=== PATIENT | male | born 1940 | race African-American/Black ===

== ENCOUNTER → 2016-10-12 | Outpatient (CLI) | payer OTHER ==
[~2016-10-12] MED LIST: ASPIRIN EC81 M1 PO; CELEXA10 MG PO; LUNESTA3 MG PO; MOBIC7.5 MG PO; NEURONTIN 300300 M1 PO; NITROGLYCERIN0.4 MG SUBLING; PEPCID20 MG PO; PRAVACHOL40 MG PO; PRINIVIL20 MG PO; SENOKOT8.6 MG PO; UROXATRAL PO
== END ==
LOC: ULTRA 11:52
DX: I73.89 Other specified peripheral vascular diseases (principal); I74.3 Embolism and thrombosis of arteries of the lower extremities

== ENCOUNTER 2019-03-16 16:07 | Inpatient (IN) | payer OTHER ==
[~2019-03-16] VITALS: Ht 180.3 cm; Wt 72.4 kg
[2019-03-16 16:07] VITALS: BP 134/74
[2019-03-16] MEDS ORDERED: LIPITOR40 MG PO (16:32)
[2019-03-16] MEDS ORDERED: COLACE 100 MG100 MG PO (16:33)
[2019-03-16] MEDS ORDERED: FLONASE 0.05%50 MCG NARES (16:33)
[2019-03-16] MEDS ORDERED: MELATIN3 MG PO (16:34)
[2019-03-16] MEDS ORDERED: FUROSEMIDE 40 M40 M1 PO (16:34)
[2019-03-16] MEDS ORDERED: IMDUR 30 MG TAB30 M1 PO (16:34)
[2019-03-16] MEDS ORDERED: ICAPS MV TABLE1 EAC1 PO (16:34)
[2019-03-16] MEDS ORDERED: PLAVIX 75 MG TA75 MG PO (16:35)
[2019-03-16] MEDS ORDERED: CENTRUM MEN'S1 EACH PO (16:35)
[2019-03-16] MEDS ORDERED: TOPROL XL25 MG PO (16:35)
[2019-03-16] MEDS ORDERED: PROTONIX40 M2 PO (16:36)
[2019-03-16] MEDS ORDERED: CALCIUM CA1250 MG/5 PO (16:36)
[2019-03-16] MEDS ORDERED: PREDNISONE 20 M20 MG PO (16:37)
[2019-03-16] MEDS ORDERED: RENAL-VITE TAB0.8 MG PO (16:38)
[2019-03-16] MEDS ORDERED: ZOLOFT25 MG PO (16:38)
[2019-03-16] MEDS ORDERED: CARAFATE 1 GM TA1 GM PO (16:38)
[2019-03-16 16:55] LABS: ABSOLUTE NEUTROPHILS 9.4 thou/uL (1.4-8.2); BASOPHILS 0.4 % (0.0-2.0); HEMATOCRIT 44.6 % (42.0-52.0); LYMPHOCYTES 4.9 % (24.0-44.0); MCH 27.6 pg (26.0-34.0); MCHC 31.4 g/dL (28.0-37.0); MONOCYTES 3.3 % (1.0-8.0); PLATELET COUNT 213 thou/uL (150-400); POLYS 91.4 % (36.0-66.0); RBC 5.07 mil/uL (4.50-6.00); WBC 10.3 thou/uL (4.0-11.0)
[2019-03-16 16:57] LABS: ANION GAP 15 mmol/L (7-16); BUN 24 mg/dL (7-18); CALCIUM 9.8 mg/dL (8.5-10.1); CHLORIDE 102 mmol/L (98-107); CO2 20 mmol/L (21-32); CREATININE 1.1 mg/dL (0.7-1.3); GLUCOSE 164 mg/dL (74-106); POTASSIUM 4.4 mmol/L (3.5-5.1); SODIUM 137 mmol/L (136-145)
[2019-03-16 17:07] LABS: ALBUMIN 3.5 g/dL (3.4-5.0); DIRECT BILIRUBIN < 0.1 mg/dL (<0.1-0.3); SGOT < 5 U/L (15-37); SGPT 47 U/L (30-65); TOTAL BILIRUBIN 0.7 mg/dL (<0.1-1.0); TOTAL PROTEIN 7.1 g/dL (6.4-8.2); TROPONIN-I 0.21 ng/mL (<0.06)
[2019-03-16 18:04] LABS: URINE BILIRUBIN NEGATIVE (Negative); URINE BLOOD 3+ (Negative); URINE CLARITY CLEAR; URINE COLOR YELLOW; URINE GLUCOSE-RANDOM* NEGATIVE (Negative); URINE KETONES NEGATIVE (Negative); URINE LEUKOCYTES-REFLEX NEGATIVE (Negative); URINE NITRITE-REFLEX NEGATIVE (Negative); URINE PROTEIN (DIPSTICK) 1+ (Negative); URINE SPECIFIC GRAVITY >= 1.030 (1.005-1.035); URINE UROBILINOGEN 0.2 E.U./dl (0.2-1.0)
[2019-03-16 18:15] LABS: SQUAMOUS 0-3 Few /LPF (0-3); URINE RBC >20 Many /HPF (0-2)
[2019-03-16 18:16] LABS: CASTS None Seen /LPF (None Seen); CRYSTALS None Seen /LPF (None Seen)
[2019-03-16 18:17] LABS: BACTERIA-REFLEX 1-9 Few /HPF (None Seen); URINE WBC-REFLEX None Seen /HPF (0-5)
--- NOTE | 2019-03-16 18:32 | NUR ---
PT'S DAUGHTER MISA CALLED TO UPDATE HER ON THE PT. MISA REQUESTED A CALL BACK FROM THE NIGHT NURSE ONCE A BED IS ASSIGNED. MISA'S PHONE NUMBER IS [phone]
[2019-03-16 19:42] VITALS: BP 117/73
[2019-03-16 20:30] VITALS: BP 114/76
[2019-03-16 23:23] VITALS: BP 101/68
[2019-03-17 01:26] LABS: HEMATOCRIT 40.9 % (42.0-52.0); HEMOGLOBIN 12.8 gm/dL (14.0-18.0); MCH 27.4 pg (26.0-34.0); MCHC 31.3 g/dL (28.0-37.0); MCV 87.5 fL (80.0-100.0); RBC 4.67 mil/uL (4.50-6.00); RDW 16.7 % (10.5-14.5)
[2019-03-17 01:36] LABS: CALCIUM 9.2 mg/dL (8.5-10.1); CREATININE 0.9 mg/dL (0.7-1.3); POTASSIUM 4.2 mmol/L (3.5-5.1)
[2019-03-17 04:47] VITALS: BP 117/83
--- NOTE | 2019-03-17 05:35 | NUR ---
ASSUMED PT CARE AT 2009. VSS, PT A&0X4. PY IS VERY UNSTEAD ON HIS FEET, HENCE BEDPAIN REQUIRED FOR ELIMINATION THIS SHIFT. OTHERWISE, PT IS STABLE, SR ON THE MONITOR. SLEPT THROUGH THE NIGHT, FLUIDS STARTED. WILL CONTINUE TO MONITOR PER POC.
[2019-03-17 08:05] VITALS: BP 124/87
--- NOTE | 2019-03-17 09:33 | 2DMMODE ---
[facility] [address] [email or web address] [address] 2 D/M-MODE ECHOCARDIOGRAM Name: VELABRANDON Room #: 219-P ADM IN M.R.#: [id number] Admission: 03/16/19 Attend Phys: Waldo Byers MD Discharge: Date of : 36 Report #: [id number] THIS REPORT FOR: //name// APPROVED REPORT Study performed: 03/17/2019 08:22:58 EXAM: Comprehensive 2D, Doppler, and color-flow Echocardiogram Patient Location: Echo lab Room #: 219 Status: routine BSA: 1.90 HR: 74 bpm BP: 124/87 mmHg Rhythm: NSR Other Information Study Quality: Good Indications Congestive Heart Failure Diabetes CAD Hypertension/HDD 2D Dimensions RVDd: 41.14 mm IVSd: 12.87 (7-11mm) LVOT Diam: 17.78 (18-24mm) LVDd: 37.31 mm PWd: 13.58 (7-11mm) Ascending Ao: 34.42 (22-36mm) LVDs: 30.19 (25-40mm) Aortic Root: 31.66 mm IVC: 21.00 mm Volumes Left Atrial Volume (Systole) Single Plane 4CH: 73.00 mL Single Plane 2CH: 66.55 mL LA ESV Index: 41.00 mL/m2 Aortic Valve AoV Peak Frederick.: 1.88 m/s AO Peak Gr.: 14.20 mmHg LVOT Max P.14 mmHg AO Mean Gr.: 7.57 mmHg LVOT Mean P.08 mmHg AO V2 Mean: 1.27 m/s LVOT Max V: 0.73 m/s AO V2 VTI: 32.86 cm LVOT Mean V: 0.45 m/s LEEANN (VTI): 0.98 cm2 LVOT V1 VTI: 12.99 cm [facility] [place] [place] [address] 2 D/M-MODE ECHOCARDIOGRAM Name: BRANDON VELA Room #: 219-P [facility] [place] .R.#: [id number] Admission: 03/16/19 Attend Phys: Waldo Byers MD Discharge: Date of : 36 Report #: [id number] LEEANN Vmax: 0.96 cm2 SV (LVOT): 32.23 mL Mitral Valve E/A Ratio: 3.5 MV Decel. Time: 166.20 ms MV E Max Frederick.: 1.36 m/s MV A Frederick.: 0.39 m/s MV PHT: 48.20 ms IVRT: 69.20 ms Pulmonary Valve PV Peak Frederick.: 1.07 m/s PV Peak Gr.: 4.68 mmHg Pulmonary Vein P Vein S: 0.34 m/s P Vein A: 0.16 m/s P Vein D: 0.47 m/s P Vein A Dur.: 92.3 msec P Vein S/D Ratio: 0.72 Tricuspid Valve TR Peak Frederick.: 3.62 m/s TR Peak Gr.: 52.34 mmHg PA Pressure: 62.00 mmHg Left Ventricle The left ventricle is normal size. Mild to moderate concentric left ventricular hypertrophy. Left ventricular systolic function is mildly decreased. LVEF is 40-45%. Grade IV - fixed restrictive diastolic dysfunction. Right Ventricle Right ventricle is at the upper limits of normal. Right ventricle is mildly hypokinetic. Atria Left atrium is dilated. Right atrium is dilated. Aortic Valve The aortic valve is normal in structure. Aortic valve is calcified. Mild aortic regurgitation. Moderate aortic stenosis. Mitral Valve The mitral valve is normal in structure. There is mitral annular calcification. Moderate mitral regurgitation. No evidence of mitral valve stenosis. [facility] [address] [place] [address] 2 D/M-MODE ECHOCARDIOGRAM Name: BRANDON VELA Room #: 219-P [facility] [place] .R.#: [id number] Admission: 03/16/19 Attend Phys: Waldo Byers MD Discharge: Date of : 36 Report #: [id number] Tricuspid Valve The tricuspid valve is normal in structure. There is mild tricuspid regurgitation. Estimated PAP 62 mmHg. There is moderate pulmonary hypertension. Pulmonic Valve The pulmonary valve is normal in structure. Trace pulmonic regurgitation. Great Vessels The aortic root is normal in size. IVC is dilated. Pericardium There is no pericardial effusion. <Conclusion> The left ventricle is normal size. Left ventricular systolic function is mildly decreased. LVEF is - 45%. Right ventricle is at the upper limits of normal. Right ventricle is mildly hypokinetic. Left atrium is dilated. Right atrium is dilated. The aortic valve is normal in structure. Aortic valve is calcified. Mild aortic regurgitation. Moderate aortic stenosis. The mitral valve is normal in structure. There is mitral annular calcification. Moderate mitral regurgitation. The tricuspid valve is normal in structure. There is mild tricuspid regurgitation. Estimated PAP 62 mmHg. There is moderate pulmonary hypertension. There is no pericardial effusion. <ELECTRONICALLY SIGNED> By: Isma Vidal MD 03/17/1935 2 2 Isma Vidal MD /INF
[2019-03-17 11:39] VITALS: BP 105/70
--- NOTE | 2019-03-17 16:43 | NUR ---
met with patient and sp with dtr. patient admits with weakness. patient resides at home with dtr. he reports all needs on one level. He has a walker but does not use. He reports hx of HH in past but cannot recall agency. Discussed therapy recommendations of post acute care. patient with [facility] list to review. Referral to [facility].
[2019-03-17 16:52] VITALS: BP 107/70
--- NOTE | 2019-03-17 18:22 | NUR ---
ASSESSMENT CHARTED. PT ALERT AND ORIENTED. VSS. DENIED HAVING PAIN OR DISCOMFORT. EVALUATED BY PT AND OT. UP IN THE CHAIR THIS SHIFT. UPDATED ON PT'S PLAN OF CARE. FALL PRECAUTION IN PLACE. WILL CONTINUE TO MONITOR.
--- NOTE | 2019-03-17 19:13 | EKG ---
[address] [place] [address] ELECTROCARDIOGRAM REPORT Name: BRANDON VELA Room #: 219-P ADM IN M.R.#: [id number] Admission: 03/16/19 Attend Phys: Waldo Byers MD Discharge: Date of : 36 Report #: [id number] THIS REPORT FOR: //name// [facility] ED Test Date: 2019-03-16 Test Time: 16:11:32 Pat Name: BRANDON VELA Department: Room: 219 Gender: M Electro Mechanical Engineer: POOJA : 1940 Requested By: Sailaja Lim Order Number: [id number] MD: Kyler Morrison Measurements Intervals [place] Rate: 71 P: 14 VT: 205 QRS: 89 QRSD: 108 T: 119 QT: 459 QTc: 499 Interpretive Statements Sinus rhythm Borderline right axis deviation Nonspecific ST and T wave abnormality Borderline prolonged QT interval Compared to ECG 10/29/2018 09:18:29 No significant changes Electronically Signed On 03-17-2019 19:13:33 LICENSED APPRAISER by Kyler Morrison [email or web address] <ELECTRONICALLY SIGNED> By: Kyler Morrison MD, [facility] 03/17/191912 10 10 Kyler Morrison MD, FACC /EPI
[2019-03-17 20:00] VITALS: BP 102/69
[2019-03-18 01:05] VITALS: BP 128/89
[2019-03-18 04:39] LABS: CALCIUM 9.1 mg/dL (8.5-10.1); POTASSIUM 3.7 mmol/L (3.5-5.1); TROPONIN-I 0.2 ng/mL (<0.06)
[2019-03-18 05:01] LABS: HEMATOCRIT 41.5 % (42.0-52.0); HEMOGLOBIN 13.2 gm/dL (14.0-18.0); MCH 27.7 pg (26.0-34.0); MCHC 31.8 g/dL (28.0-37.0); MCV 87.1 fL (80.0-100.0); RBC 4.77 mil/uL (4.50-6.00); WBC 7.7 thou/uL (4.0-11.0)
[2019-03-18 05:50] VITALS: BP 104/70
[2019-03-18 07:14] VITALS: BP 104/70
--- NOTE | 2019-03-18 07:34 | NUR ---
PT UP TO CHAIR FOR 1ST PART OF SHIFT AND CALLS OUT APPROPRIATLY TO TRANSFER TO BED, VSS,HAD EPISODE OF 10 BEAT RUN OF VT WHILE SLEEPING - ASYMPTOMATIC, STRIP PLACED IN CHART, NPO SINCE [facility] FOR STRESS TEST TODAY NO CAFFIENE, NO C/O PAIN, WILL CON'T TO MONITOR PER PPOC.
--- NOTE | 2019-03-18 10:19 | NUR ---
Spoke with dtr her first choice for post acute care is [facility] referral in process.
[2019-03-18 11:10] VITALS: BP 123/85
--- NOTE | 2019-03-18 13:53 | NUR ---
FAXED REFERRAL TO [facility] SPOKE WITH DESIRAE IN ADM SHE RECEIVED REFERRAL AND WILL REVIEW. DP TO FOLLOW
[2019-03-18 16:29] VITALS: BP 118/75
--- NOTE | 2019-03-18 17:24 | NUR ---
ASSESSMENT CHARTED. PT ALERT AND ORIENTED. VSS. DENIED HAVING PAIN OR DISCOMFORT. NO CARDIAC OR RESPIRATORY DISTRESS NOTED. WILL CONTINUE TO MONITOR.
[2019-03-18 20:00] VITALS: BP 116/69
[2019-03-19 05:04] VITALS: BP 115/81
[2019-03-19 05:10] LABS: HEMATOCRIT 41.2 % (42.0-52.0); HEMOGLOBIN 13.1 gm/dL (14.0-18.0); MCH 27.6 pg (26.0-34.0); MCHC 31.8 g/dL (28.0-37.0); MCV 86.8 fL (80.0-100.0); RBC 4.75 mil/uL (4.50-6.00); RDW 16.9 % (10.5-14.5); WBC 7.8 thou/uL (4.0-11.0)
[2019-03-19 05:43] LABS: CALCIUM 9.4 mg/dL (8.5-10.1); POTASSIUM 4.2 mmol/L (3.5-5.1)
--- NOTE | 2019-03-19 05:56 | NUR ---
A/O X 4.UP WITH THE WALKER IN THE [place].COMPLAIN OF HEADACHE.TYLENOL GIVEN.SLEPT AFTER RECEIVED RELIEF FROM HEADACHE.MONITOR SHOWS SR.POC CONTINUED.
[2019-03-19 08:00] VITALS: BP 104/67
[2019-03-19 12:00] VITALS: BP 107/59
--- NOTE | 2019-03-19 13:19 | NUR ---
spoke with Cleopatra in admissions at [facility] she is working on auth for skilled care. Casemgt sp with dtr this am who is aware of plan.
--- NOTE | 2019-03-19 13:32 | NUR ---
ON-GOING ASSESSMENT: CM REVIEWED CHART. PT HAS RUQ DRAIN. PT IS ALSO RUNNING A FEVER TODAY. CM SPOKE WITH DR. VALDIVIA WHO STATES PATIENT WILL NEED IV ANBX AT DISCHARGE AND AWAITING CULTURES AT THIS TIME TO DETERMINE ANBX. CM NOTIFIED OUTPATIENT INFUSION (BALJINDER) THAT PATIENT IS PATIENT PAY AND WILL NEED OUTPATIENT INFUSION ONCE STABLE TO DISCHARGE AND ANBX IS STILL PENDING PER CULTURES. CM WILL CONTINUE TO FOLLOW TO ASSIST NEEDED.
--- NOTE | 2019-03-19 15:38 | NUR ---
SPOKE WITH DESIRAE IN ADM AT [facility] SHE HAS RECEIVED AUTH AND SCHEDULED TRANSPORT FOR TOMORROW AT 0930 BY [facility] AND NO 02.
[2019-03-19 16:17] VITALS: BP 111/71
--- NOTE | 2019-03-19 17:03 | NUR ---
PT ALERT AND ORIENTED. VSS. DAUGHTER UPDATED ON PT'S PROGRESS. UP IN THE CHAIR THIS SHIFT. EVALUATED BY PT AND OT. PROGRESSING WELL TOWARD DISCHARGE GOAL.
[2019-03-19 19:07] VITALS: BP 121/81
[2019-03-20 03:23] VITALS: BP 124/79
--- NOTE | 2019-03-20 06:39 | NUR ---
FOLLOWING POC AND PT SHOULD DC TODAY. PT VOIDS VIA URINAL. PT STATES NO PAIN/NAUSEA. PT ONLY REQUEST WAS FOR SOME ICE CREAM. HOURLY ROUNDING.
[2019-03-20] MEDS ORDERED: AZITHROMYCIN500 MG PO (07:46)
[2019-03-20 07:50] VITALS: BP 116/85
[2019-03-20 08:46] VITALS: BP 116/85
--- NOTE | 2019-03-20 09:50 | NUR ---
PT DISCHARGING TODAY TO [facility] FAXED DC ORDERS/SUMMARY TO FACILITY SPOKE WITH DESIRAE IN ADM SHE RECEIVED DC ORDERS AND ARRANGED TRANSPORT BY [facility] FOR 929. FAMILY NOTIFIED BY SW AND UNIT NOTIFIED CHART COPY PER US. RN TO CALL REPORT TO [phone].
--- NOTE | 2019-03-20 09:50 | NUR ---
ALERT/ORIENTED X 4, PLEASANT, COOPERATIVE, C/O OF HEADACHE WITH TYLENOL ADMINISTERED. SR, ROOM AIR, PRODUCTIVE COUGH, BOTH IV ANTIBIOTICS INFUSED. PT CONSUMED ALL HIS BREAKFAST, DRESSED, IV DC'D. ALL DISCHARGE [facility]. DAUGHTER CALLED, UPDATED ON PT TRANSFERRING TO [facility] PER [facility] AT THIS TIME. REPORT CALLED TO KACI MOTLEY DAM WORKER AT [facility].
--- NOTE | 2019-03-20 10:01 | NUR ---
Pt dc'd to [facility] this am via their w/c van. Pt agreeable. Dtr Tyrell notified that transport was here and she is meeting him over there. Nursing called report, chart copy sent with pt and dc senior production planner faxed the dc orders. Pt to be skilled for therapy. Case closed.
== END 2019-03-20 10:21 | DRG 193 ==
LOC: ER 16:07 → EROBS 18:12 → 2N 18:12
PROVIDERS: Emergency Medicine; ADMIT Hospitalist
DX: J18.9 Pneumonia, unspecified organism (principal); I21.4 Non-ST elevation (NSTEMI) myocardial infarction; I50.23 Acute on chronic systolic (congestive) heart failure; I25.10 Atherosclerotic heart disease of native coronary artery without angina pectoris; E78.00 Pure hypercholesterolemia, unspecified; E11.51 Type 2 diabetes mellitus with diabetic peripheral angiopathy without gangrene; E11.42 Type 2 diabetes mellitus with diabetic polyneuropathy; N40.0 Benign prostatic hyperplasia without lower urinary tract symptoms; I11.0 Hypertensive heart disease with heart failure; M19.90 Unspecified osteoarthritis, unspecified site; K21.9 Gastro-esophageal reflux disease without esophagitis; M31.6 Other giant cell arteritis; I50.9 Heart failure, unspecified; R29.6 Repeated falls; F32.9 Major depressive disorder, single episode, unspecified; Z87.891 Personal history of nicotine dependence; Z95.1 Presence of aortocoronary bypass graft; Z79.82 Long term (current) use of aspirin; Z79.899 Other long term (current) drug therapy
CPT/HCPCS: 10081